=== PATIENT | female | born 1965 | race Caucasian/White ===

== ENCOUNTER 2023-06-24 10:28 | Inpatient (IN) | payer BC ==
[~2023-06-24] VITALS: Ht 149.9 cm; Wt 69.9 kg
[~2023-06-24 10:28] MED LIST: VIC PO
[2023-06-24 10:36] VITALS: BP 157/77; PULSE 120; RESP 18; TEMP 96.6; O2SAT 98
[2023-06-24] MEDS ORDERED: KETOROLAC 30 MG/ML VIAL IVP ONE (11:10)
--- NOTE | 2023-06-24 11:30 | NUR ---
xray at bedside
[2023-06-24 11:36] LABS: BASOPHILS # (AUTO) 0.1 K/uL (0.00-0.22); EOSINOPHILS # (AUTO) 0.2 K/uL (0-0.4); EOSINOPHILS % (AUTO) 2.5 % (0.0-4.0); HEMATOCRIT 38.4 % (36-48); HEMOGLOBIN 12.5 g/dL (12.0-16.0); LYMPHOCYTES % (AUTO) 28.5 % (20.5-51.1); MEAN CORPUSCULAR HEMOGLOBIN 28 pg (27-31); MEAN CORPUSCULAR HGB CONC 33 g/dL (33-37); MEAN CORPUSCULAR VOLUME 85.3 fL (80-94); MONOCYTES # (AUTO) 0.7 K/uL (0.8-1.0); MONOCYTES % (AUTO) 10.5 % (1.7-9.3); NEUTROPHILS % (AUTO) 57.5 % (42.2-75.2); PLATELET COUNT (AUTO) 288 K/uL (140-450)
[2023-06-24 11:59] LABS: LIPASE 65 U/L (73-393)
[2023-06-24 12:02] LABS: PROTHROMBIN TIME 10.9 secs (10.8-13.4)
[2023-06-24 12:05] LABS: ALBUMIN 3.5 g/dL (3.4-5.0); ANION GAP 14.8 (8-16); CARBON DIOXIDE 23.8 mmol/L (21-32); CREATININE 0.8 mg/dL (0.6-1.3); POTASSIUM 4.6 mmol/L (3.5-5.1); TOTAL BILIRUBIN 0.7 mg/dL (0.0-1.0)
[2023-06-24] MEDS ORDERED: FUROSEMIDE 40 MG/4 ML VIAL IVP ONE (12:35)
[2023-06-24] MEDS ORDERED: NITROGLYCERIN 2% 1 GM PKT TP ONE (12:35)
--- NOTE | 2023-06-24 17:25 | NUR ---
Patient will be admitted to care of DR FISH. Admited to TELE 106A. Will go to [facility] . Belongings list completed. Report to MOIZ BLANCO.
--- NOTE | 2023-06-24 17:30 | NUR ---
RECEIVED FROM ER VIA [facility]. AWAKE, ALERT, AND ORIENTED X4. SPEECH CLEAR. NO C/O PAIN. NO SOB, NOTED. SKIN WARM DRY AND INTACT. SALINE LOCK ON RIGHT AC GAUGE #20 PATENT AND INTACT. KEEP COMFORTABLE ON BED. EXPLAINED DIAGNOSIS, PLAN OF CARE, PAIN MANAGEMENT TEACHING, USE OF CALL LIGHT/BED/TV/BATHROOM. VERBALIZED UNDERSTANDING. CALL LIGHT WITHIN REACH.
[2023-06-24 17:40] VITALS: BP 149/96; PULSE 96; RESP 18; TEMP 98; O2SAT 97
[2023-06-24 17:41] VITALS: PULSE 108
[2023-06-24] MEDS ORDERED: HYDROcodone/APAP 5/325 MG 1 TAB TAB PO PRN (17:55)
[2023-06-24] MEDS ORDERED: ACETAMINOPHEN 325 MG TAB PO PRN (17:55)
[2023-06-24 19:00] VITALS: PULSE 112
--- NOTE | 2023-06-24 19:11 | NUR ---
REPORT GIVEN TO JOSE PERRY. IN STABLE CONDITION. ALSO ENDORSED TO CONTINUE PT. ADMISSION PROCESS.
--- NOTE | 2023-06-24 19:20 | NUR ---
RECEIVED PT FROM AM NURSE FOR CONTINUITY OF CARE. PT IS STABLE
[2023-06-24 20:00] VITALS: BP 128/90; PULSE 112; PULSE 113; RESP 18; TEMP 97.1; O2SAT 97
[2023-06-24] MEDS: FUROSEMIDE 40 MG/4 ML VIAL IVP SCH (20:18)
[2023-06-24] MEDS: ATORVASTATIN 20 MG TAB PO SCH (20:18)
[2023-06-24] MEDS: HYDROcodone/APAP 10/325 MG 1 TAB TAB PO PRN (20:19)
[2023-06-25] VITALS (9 sets, daily range): BP systolic 101–143; BP diastolic 56–94; PULSE 57–113; RESP 18; TEMP 96.6–97.6; O2SAT 96–100
--- NOTE | 2023-06-25 07:42 | NUR ---
PATIENT RECEIVED AT BED SIDE , ON BED REST , SLEEPING , AROUSAL TO VOICE , A/OX4 ,NO SOB , NO COMPLAIN AT THIS TIME , SAFETY ON PLACE , SIDE RAILS UP X2 , BED IN LOWER POSITION , CALL LIGHT WITHIN REACH ON CARDIAC DIET , SKIN INTACT , AMBULATORY , CONTINENT X2 , PATIENT STILL UNDER OBSERVE .
[2023-06-25] MEDS: ECOTRIN 81 MG TABEC PO SCH (08:32)
[2023-06-25] MEDS: FUROSEMIDE 40 MG/4 ML VIAL IVP SCH ×2 (08:32→20:10)
[2023-06-25] MEDS: HYDROcodone/APAP 10/325 MG 1 TAB TAB PO PRN ×2 (08:37→18:59)
--- NOTE | 2023-06-25 08:54 | NUR ---
PATIENT HAS BEEN SCREENED AND CATEGORIZED MODERATE NUTRITION RISK. PATIENT WILL BE SEEN WITHIN 3-5 DAYS OF ADMISSION. 06/27/23-06/29/[address]
[2023-06-25] MEDS ORDERED: lisinopriL 20 MG TAB PO SCH (09:00)
--- NOTE | 2023-06-25 11:32 | NUR ---
PATIENT A/OX4 , O0N BED REST , NO COMPLAIN AT THIS TIME IV CHANGE , PATIENT STILL UNDER OBSERVE .
--- NOTE | 2023-06-25 15:11 | NUR ---
PATIENT TRANSFER TO MED SURG CARDIOLOGY ORDER .
[2023-06-25 15:15] LABS: BARBITURATE, URINE NEGATIVE ng/ml (NEG <=200); BENZODIAZEPINE, URINE NEGATIVE ng/mL (NEG <=200); CANNABINOID, URINE NEGATIVE ng/mL (NEG <=50); COCAINE, URINE NEGATIVE ng/mL (NEG <=300); OPIATE, URINE POSITIVE ng/mL (NEG <=2000); PHENCYCLIDINE SCREEN,URINE NEGATIVE ng/mL (NEG <=25)
--- NOTE | 2023-06-25 15:40 | NUR ---
PATIENT ON BED REST , A/OX4 , VSS , MED SURG PATIENT , WITH IV SALINE LOCKED AMBULATORY , CONTINENT X2 , NO COMPLAIN OF CHEST PAIN , SAFETY ON PLACE ON CARDIAC DIET , PATIENT STILL UNDER OBSERVE .
--- NOTE | 2023-06-25 19:05 | NUR ---
ham report given to night nurse , all his question answered .
--- NOTE | 2023-06-25 19:15 | NUR ---
RECEIVED PT FROM AM NURSE FOR CONTINUITY OF CARE. PT IS STABLE
[2023-06-25] MEDS: ATORVASTATIN 20 MG TAB PO SCH (20:10)
--- NOTE | 2023-06-26 01:00 | NUR ---
PATIENT ASLEEP, NO DISTRESS NOTED
[2023-06-26 04:00] VITALS: BP 128/80; PULSE 93; RESP 18; TEMP 97.2; O2SAT 98
[2023-06-26 07:55] VITALS: PULSE 88
[2023-06-26 08:00] VITALS: BP 117/70; PULSE 81; PULSE 86; RESP 18; TEMP 98.7; O2SAT 98
[2023-06-26] MEDS: FUROSEMIDE 40 MG/4 ML VIAL IVP SCH (08:48)
[2023-06-26] MEDS: ECOTRIN 81 MG TABEC PO SCH (08:49)
[2023-06-26] MEDS: HYDROcodone/APAP 10/325 MG 1 TAB TAB PO PRN (08:55)
[2023-06-26] MEDS ORDERED: FURO-570 PO (08:55)
[2023-06-26] MEDS ORDERED: ATOR20TA40 PO (08:55)
[2023-06-26] MEDS ORDERED: ASPI-1856 PO (08:55)
[2023-06-26] MEDS ORDERED: METO50TE2 PO (08:55)
[2023-06-26] MEDS ORDERED: LISI10TA30 PO (08:55)
[2023-06-26] MEDS ORDERED: SPIR50TA PO (08:55)
[2023-06-26] MEDS ORDERED: METOPROLOL SUCCINATE 50 MG TABER PO SCH (09:00)
[2023-06-26] MEDS ORDERED: lisinopriL 10 MG TAB PO SCH (09:00)
[2023-06-26 10:07] VITALS: BP 117/70; PULSE 86; RESP 18; TEMP 98.8
--- NOTE | 2023-06-26 11:44 | NUR ---
patient has discharge order to go home , Isidro JEWELL/ALEN4 , discharge packet explain for patient patient verbalized understanding of give , all her document singed and place on chart , medication reconciled iv and arm band removed , assisted to lobby and picked by her friends .
--- NOTE | 2023-06-26 12:05 | NUR ---
CALLED DR HEVER ABEBE[facility]S OFFICE LOCATED AT [address] [facility] [id number]. I WAS ABLE TO SCHEDULE THE [facility] FOLLOW UP APPOINTMENT FOR 07/10/2023 AT 1000. WENT TO BEDSIDE TO GIVE THE PATIENT THIS INFORMATION BUT THE PATIENT WAS ALREADY DISCHARGED. CALLED PATIENT WHO ANSWERED AND WAS ABLE TO VERBALLY INFORM HER OF THE ABOVE INFORMATION.
== END 2023-06-26 11:50 | disposition home or self-care (01) | DRG 292 ==
LOC: MED 10:28 → MTU 14:19
PROVIDERS: ADMIT Student in an Organized Health Care Education/Training Program; ATTEND Student in an Organized Health Care Education/Training Program
DX: I50.23 Acute on chronic systolic (congestive) heart failure (principal); I42.6 Alcoholic cardiomyopathy; I51.7 Cardiomegaly; Z90.49 Acquired absence of other specified parts of digestive tract; Z90.710 Acquired absence of both cervix and uterus
CPT/HCPCS: 36415; 71045; 80053; 80305; 83690; 83880; 84484; 85025; 85379; 85610; 85730; 87040; 87081; 93005; 96374; 96375; 99291; J1885; J1940; Q0092

== ENCOUNTER 2023-12-11 10:59 | Emergency (ER) | payer BC ==
[~2023-12-11] VITALS: Ht 165.1 cm; Wt 77.1 kg
[~2023-12-11 10:59] MED LIST changes: +ASPI-1856 PO; +ATOR20TA40 PO; +FURO-570 PO; +LISI10TA30 PO; +METO50TE2 PO; +SPIR50TA PO
[2023-12-11 11:18] VITALS: BP 117/51; PULSE 91; RESP 18; TEMP 98; O2SAT 98
[2023-12-11 11:48] LABS: BASOPHILS % (AUTO) 0.3 % (0.0-2.0); EOSINOPHILS # (AUTO) 0.1 K/uL (0-0.4); EOSINOPHILS % (AUTO) 1.1 % (0.0-4.0); HEMATOCRIT 38.3 % (36-48); HEMOGLOBIN 12.8 g/dL (12.0-16.0); LYMPHOCYTES # (AUTO) 0.6 K/uL (2.5-16.5); LYMPHOCYTES % (AUTO) 6.4 % (20.5-51.1); MEAN CORPUSCULAR HEMOGLOBIN 30 pg (27-31); MEAN CORPUSCULAR HGB CONC 34 g/dL (33-37); MEAN CORPUSCULAR VOLUME 88.9 fL (80-94); MONOCYTES # (AUTO) 0.8 K/uL (0.8-1.0); MONOCYTES % (AUTO) 9.6 % (1.7-9.3); NEUTROPHILS # (AUTO) 7.1 K/uL (1.8-7.7); NEUTROPHILS % (AUTO) 82.6 % (42.2-75.2); PLATELET COUNT (AUTO) 242 K/uL (140-450); RED CELL DISTRIBUTION WIDTH 13.7 % (11.6-13.7); WHITE BLOOD COUNT (AUTO) 8.6 K/uL (4.8-10.8)
[2023-12-11 12:06] LABS: ANION GAP 10.6 (8-16); CALCIUM 9.1 mg/dL (8.5-10.1); CREATININE 0.9 mg/dL (0.6-1.3); POTASSIUM 4.6 mmol/L (3.5-5.1)
[2023-12-11 12:14] LABS: ALBUMIN 3.7 g/dL (3.4-5.0); BILIRUBIN,DIRECT 0.1 mg/dL (0.0-0.3); TOTAL BILIRUBIN 0.6 mg/dL (0.0-1.0)
[2023-12-11 12:58] VITALS: BP 109/58; PULSE 88; RESP 18; TEMP 98
[2023-12-11 12:59] VITALS: O2SAT 100
[2023-12-11] MEDS ORDERED: LOPE-289 PO (14:12)
[2023-12-11] MEDS ORDERED: ONDA8TAB87 PO (14:12)
== END 2023-12-11 15:02 | disposition home or self-care (01) ==
LOC: MED 10:59
DX: R10.11 Right upper quadrant pain (principal); R11.2 Nausea with vomiting, unspecified; R19.7 Diarrhea, unspecified; I50.9 Heart failure, unspecified; Z79.899 Other long term (current) drug therapy
CPT/HCPCS: 36415; 80048; 80076; 83690; 85025; 99283

== ENCOUNTER 2024-08-31 20:02 | Observation (INO) | payer BC ==
[~2024-08-31] VITALS: Ht 149.9 cm; Wt 64.9 kg
[~2024-08-31 20:02] MED LIST changes: +LOPE-289 PO; +ONDA8TAB87 PO
[2024-08-31 20:07] VITALS: BP 193/125; PULSE 121; RESP 20; TEMP 97.3; O2SAT 99
[2024-08-31 20:37] VITALS: O2SAT 98
[2024-08-31 20:40] LABS: BASOPHILS # (AUTO) 0.1 K/uL (0.00-0.22); BASOPHILS % (AUTO) 0.6 % (0.0-2.0); EOSINOPHILS # (AUTO) 0.5 K/uL (0-0.4); EOSINOPHILS % (AUTO) 3.7 % (0.0-4.0); HEMATOCRIT 39.5 % (36-48); HEMOGLOBIN 12.7 g/dL (12.0-16.0); LYMPHOCYTES # (AUTO) 3.9 K/uL (2.5-16.5); LYMPHOCYTES % (AUTO) 31.7 % (20.5-51.1); MEAN CORPUSCULAR HEMOGLOBIN 27 pg (27-31); MEAN CORPUSCULAR HGB CONC 32 g/dL (33-37); MEAN CORPUSCULAR VOLUME 82.6 fL (80-94); MONOCYTES # (AUTO) 1.1 K/uL (0.8-1.0); MONOCYTES % (AUTO) 9.3 % (1.7-9.3); NEUTROPHILS # (AUTO) 6.7 K/uL (1.8-7.7); NEUTROPHILS % (AUTO) 54.7 % (42.2-75.2); PLATELET COUNT (AUTO) 293 K/uL (140-450); RED BLOOD CELL COUNT(AUTO) 4.78 MIL/uL (4.20-5.40); RED CELL DISTRIBUTION WIDTH 15.7 % (11.6-13.7); WHITE BLOOD COUNT (AUTO) 12.3 K/uL (4.8-10.8)
[2024-08-31 21:09] LABS: ALBUMIN 3.2 g/dL (3.4-5.0); ANION GAP 11.4 (8-16); CALCIUM 8.4 mg/dL (8.5-10.1); CARBON DIOXIDE 27.3 mmol/L (21-32); POTASSIUM 3.7 mmol/L (3.5-5.1); TOTAL BILIRUBIN 0.4 mg/dL (0.0-1.0); TOTAL PROTEIN, SERUM 7.5 g/dL (6.4-8.2)
[2024-08-31] MEDS: FUROSEMIDE 20 MG/2 ML VIAL IVP ONE (23:19)
[2024-09-01 00:20] VITALS: O2SAT 99
[2024-09-01] MEDS ORDERED: SACU1TAB9 PO (01:42)
[2024-09-01] MEDS ORDERED: EMPA25TA PO (01:42)
[2024-09-01] MEDS ORDERED: MAG SULF 2000 MG/WATER PREMIX 50 ML IV PRN (02:50)
[2024-09-01] MEDS ORDERED: MAGNESIUM OXIDE 400 MG TAB PO PRN (02:50)
[2024-09-01] MEDS ORDERED: ONDANSETRON 4 MG/2 ML VIAL IVP PRN (02:50)
[2024-09-01] MEDS ORDERED: ACETAMINOPHEN 325 MG TAB PO PRN (02:50)
[2024-09-01] MEDS ORDERED: LORazepam 1 MG TAB PO PRN (02:50)
[2024-09-01] MEDS ORDERED: KCL 20 MEQ IN 100 mL PREMIX 200 ML IV PRN (02:50)
[2024-09-01 03:09] VITALS: O2SAT 98
[2024-09-01 06:05] VITALS: O2SAT 98
[2024-09-01] MEDS: FUROSEMIDE 20 MG/2 ML VIAL IVP SCH (09:12)
[2024-09-01] MEDS: HYDROcodone/APAP 5/325 MG 1 TAB TAB PO PRN (13:07)
[2024-09-01 13:45] VITALS: PULSE 116; RESP 18; O2SAT 97
[2024-09-01 16:00] VITALS: BP 139/86; PULSE 101; PULSE 102; RESP 18; TEMP 96.9; O2SAT 96
[2024-09-01 20:00] VITALS: BP 162/75; PULSE 102; PULSE 110; PULSE 116; RESP 18; TEMP 97.1; O2SAT 97
[2024-09-02] VITALS: BP 131/81; PULSE 108; PULSE 92; RESP 18; TEMP 96.4; O2SAT 97
[2024-09-02 04:00] VITALS: BP 147/88; PULSE 101; RESP 18; TEMP 97.1; O2SAT 95
[2024-09-02 04:20] VITALS: PULSE 102
[2024-09-02 06:39] LABS: BASOPHILS # (AUTO) 0.1 K/uL (0.00-0.22); BASOPHILS % (AUTO) 0.6 % (0.0-2.0); EOSINOPHILS # (AUTO) 0.4 K/uL (0-0.4); EOSINOPHILS % (AUTO) 3.2 % (0.0-4.0); HEMATOCRIT 44.8 % (36-48); HEMOGLOBIN 14.6 g/dL (12.0-16.0); LYMPHOCYTES # (AUTO) 3.1 K/uL (2.5-16.5); LYMPHOCYTES % (AUTO) 28.9 % (20.5-51.1); MEAN CORPUSCULAR HEMOGLOBIN 27 pg (27-31); MEAN CORPUSCULAR HGB CONC 33 g/dL (33-37); MEAN CORPUSCULAR VOLUME 81.9 fL (80-94); MONOCYTES # (AUTO) 1.3 K/uL (0.8-1.0); MONOCYTES % (AUTO) 12.1 % (1.7-9.3); NEUTROPHILS % (AUTO) 55.2 % (42.2-75.2); PLATELET COUNT (AUTO) 294 K/uL (140-450); RED BLOOD CELL COUNT(AUTO) 5.47 MIL/uL (4.20-5.40); RED CELL DISTRIBUTION WIDTH 16.2 % (11.6-13.7); WHITE BLOOD COUNT (AUTO) 10.9 K/uL (4.8-10.8)
[2024-09-02 06:45] LABS: ANION GAP 10.9 (8-16); CALCIUM 9.2 mg/dL (8.5-10.1); CARBON DIOXIDE 28.3 mmol/L (21-32); POTASSIUM 3.2 mmol/L (3.5-5.1)
[2024-09-02 06:51] LABS: MAGNESIUM 2.2 mg/dL (1.8-2.4); PHOSPHORUS 4.6 mg/dL (2.5-4.9)
[2024-09-02 08:00] VITALS: BP 147/91; PULSE 101; PULSE 96; PULSE 97; RESP 18; TEMP 97.5; O2SAT 97
[2024-09-02] MEDS: FUROSEMIDE 40 MG/4 ML VIAL IVP SCH (09:34)
[2024-09-02] MEDS: POTASSIUM CHLORIDE 10 MEQ TABER PO PRN (10:10)
[2024-09-02 12:00] VITALS: BP 148/86; PULSE 118; PULSE 97; RESP 18; TEMP 97.6; O2SAT 97
[2024-09-02] MEDS ORDERED: FURO-570 PO (13:02)
[2024-09-02] MEDS ORDERED: POTA10TA70 PO (13:03)
== END 2024-09-02 15:00 | disposition home or self-care (01) ==
LOC: MED 20:02 → MTU 09-01 02:49
PROVIDERS: ADMIT Hospitalist; ATTEND Hospitalist
DX: R60.0 Localized edema (principal); I50.9 Heart failure, unspecified; R07.89 Other chest pain; Z90.49 Acquired absence of other specified parts of digestive tract; Z79.899 Other long term (current) drug therapy
CPT/HCPCS: 36415; 71045; 80048; 80053; 83735; 83880; 84100; 84484; 85025; 85379; 87081; 93005; 96372; 96374; 96376; 99285; G0378; J1644; J1940